=== PATIENT | female | born 1930 | race Caucasian/White ===

== ENCOUNTER 2016-06-19 | Emergency (ER) | payer MEDICARE ==
[~2016-06-19] MED LIST: ALBUTEROL17 GM INH; AMOXICILLIN875 M1 PO; PHENERGAN W/CO120 ML PO; TAMIFLU75 MG/CAP PO
[2016-06-19] MEDS ORDERED: NO HOME MEDICATION XX (10:57)
[2016-06-19] MEDS ORDERED: KEFLEX500 M4 PO (13:34)
== END 2016-06-19 13:50 ==
DX: N39.0 Urinary tract infection, site not specified (principal)